=== PATIENT | male | born 1955 | race Caucasian/White ===

== ENCOUNTER 2017-08-25 10:09 | Emergency (ER) | payer MEDICAID ==
[~2017-08-25] VITALS: Ht 160 cm; Wt 77.6 kg
[2017-08-25 10:12] VITALS: BP 149/83
--- NOTE | 2017-08-25 10:25 | NUR ---
PATIENT PRESENTS TO ED WITH continued pain to lue seen 08/12/2017 dx ulnar fx---instructed to f/u with pmd or ortho referral but pt has not done so . PT STATES . DENIES N/V/D; SKIN IS PINK/WARM/DRY; AAOX4 WITH EVEN AND STEADY GAIT; LUNGS CLEAR BL; HR EVEN AND REGULAR; PT DENIES ANY FEVER, CP, SOB, OR COUGH AT THIS TIME; PATIENT STATES PAIN OF 7/10 AT THIS TIME; VSS; PATIENT POSITIONED FOR COMFORT;BEDRAILS UP X2; . ER MD MADE AWARE OF PT STATUS.
[2017-08-25] MEDS ORDERED: KETOROLAC 30 MG/ML VIAL IM ONE (10:45)
--- NOTE | 2017-08-25 11:05 | NUR ---
Patient discharged with v/s stable. Written and verbal after care instructions given and explained. Patient alert, oriented and verbalized understanding of instructions. Ambulatory with steady gait. All questions addressed prior to discharge. ID band removed. Patient advised to follow up with PMD. Rx of TYLENOL given. Patient educated on indication of medication including possible reaction and side effects. Opportunity to ask questions provided and answered. PROVIDED WITH LIST OF CLINICS FOR PMD---INSTRUCTED TO F/U TODAY FOR ORTHO REFERRAL
[2017-08-25 11:06] VITALS: BP 134/88
== END 2017-08-25 11:05 | disposition home or self-care (01) ==
LOC: MED 10:09
DX: S52.202D Unspecified fracture of shaft of left ulna, subsequent encounter for closed fracture with routine healing (principal); X58.XXXD Exposure to other specified factors, subsequent encounter
CPT/HCPCS: 96372; 99283; J1885